=== PATIENT | female | born 1940 | race Caucasian/White ===

== ENCOUNTER 2023-11-17 15:01 | Emergency (ER) | payer MEDICARE, OTHER ==
[~2023-11-17] VITALS: Ht 162.6 cm; Wt 63.5 kg
[2023-11-17] MEDS ORDERED: Toprol Xl50 MG PO (17:46)
== END 2023-11-17 17:34 | disposition home or self-care (01) ==
LOC: ER 15:01
DX: Z76.0 Encounter for issue of repeat prescription (principal); Z79.899 Other long term (current) drug therapy; I48.91 Unspecified atrial fibrillation; I11.0 Hypertensive heart disease with heart failure; I50.9 Heart failure, unspecified; E11.42 Type 2 diabetes mellitus with diabetic polyneuropathy
CPT/HCPCS: 99282

== ENCOUNTER 2023-12-01 18:55 | Emergency (ER) | payer MEDICARE, OTHER ==
[~2023-12-01] VITALS: Ht 162.6 cm; Wt 70.3 kg
== END 2023-12-01 22:23 | disposition home or self-care (01) ==
LOC: ER 18:55
DX: I11.0 Hypertensive heart disease with heart failure (principal); I50.9 Heart failure, unspecified; I48.91 Unspecified atrial fibrillation; E11.42 Type 2 diabetes mellitus with diabetic polyneuropathy; F17.210 Nicotine dependence, cigarettes, uncomplicated

== ENCOUNTER 2024-01-31 14:44 | Emergency (ER) | payer MEDICARE ==
[~2024-01-31] VITALS: Ht 162.6 cm; Wt 68.0 kg
[~2024-01-31 14:44] MED LIST: ACET500 PO; CATAPRES0.3 MG PO; ELIQUIS5 M2 PO; FURO20 PO; JARDIANCE10 MG PO; LISI5 PO; Neurontin300 MG PO; QUET25 PO; Toprol Xl50 MG PO
[2024-01-31] MEDS ORDERED: Ondansetron HCl 2 MG / ML 2ML Vial IV ONE (15:00)
[2024-01-31 15:15] LABS: BASOPHILS ABSOLUTE AUTO 0.01 K/mm3 (0.00-0.23); BASOPHILS PERCENT AUTO 0 % (0-2); EOSINOPHILS ABSOLUTE AUTO 0.01 K/mm3 (0.00-0.68); EOSINOPHILS PERCENT AUTO 0 % (0-6); Hematocrit 43.5 % (33.0-51.0); Hemoglobin 14.8 g/dL (11.5-16.0); IMMATURE GRAN ABSOLUTE AUTO 0.03 K/mm3 (0.00-0.10); IMMATURE GRAN PERCENT AUTO 0 % (0-1); LYMPHOCYTES ABSOLUTE AUTO 1.72 K/mm3 (0.84-5.20); LYMPHOCYTES PERCENT AUTO 21 % (21-46); MONOCYTES ABSOLUTE AUTO 0.59 K/mm3 (0.16-1.47); MONOCYTES PERCENT AUTO 7 % (4-13); Mean Corpuscular HGB 32.1 pg (26.0-34.0); Mean Corpuscular Volume 94 fL (80-100); Mean Platelet Volume 9.6 fL (9.1-12.4); NEUTROPHILS ABSOLUTE AUTO 5.88 K/mm3 (1.96-9.15); NEUTROPHILS PERCENT AUTO 71 % (41-73); Platelet Count 163 K/mm3 (150-400); RDW Coefficient Variation 13.2 % (11.7-14.2); RDW Standard Deviation 45.6 fL (35.1-46.3); Red Blood Cell Count 4.61 M/mm3 (3.80-5.20); White Blood Cell Count 8.24 K/mm3 (4.00-11.30)
[2024-01-31 15:28] LABS: Source, Urine Straight Cath
[2024-01-31 15:33] LABS: Appearance, Urine Clear (Clear); Bilirubin, Urine Neg (Neg); Blood, Urine Neg (Neg); Glucose Qualitative, Urine 4+ (Neg); Ketones, Urine Neg (Neg); Leukocyte Esterase, Urine Neg (Neg); Nitrite, Urine Neg (Neg); Protein, Urine 1+ (Neg); Specific Gravity, Urine 1.015 (1.003-1.022); Urobilinogen, Urine NORM (Normal)
[2024-01-31 15:37] LABS: Albumin, Blood 3.4 g/dL (3.4-5.0); Albumin/Globulin Ratio 0.8 (0.8-1.8); Bilirubin, Total 0.6 mg/dL (0.1-1.0); Bun/Creatinine Ratio 29.5 (12.0-20.0); Calcium, Blood 8.8 mg/dL (8.5-10.1); Creatinine, Blood 1.12 mg/dL (0.40-1.00); Total Protein, Blood 7.4 g/dL (6.4-8.2)
[2024-01-31 15:49] LABS: Color, Urine Pale Yellow (P-Yellow)
[2024-01-31 16:02] LABS: Influenza A, PCR NEGATIVE (NEGATIVE); Influenza B, PCR NEGATIVE (NEGATIVE); Resp Syncytial Virus, PCR NEGATIVE (NEGATIVE); SARS-Cov-2 (COVID-19) PCR, MMC NEGATIVE (NEGATIVE)
[2024-01-31] MEDS ORDERED: NS 1,000 ML IV SCH (16:30)
[2024-01-31] MEDS ORDERED: Ondansetron HCl 2 MG / ML 2ML Vial ONE (17:05)
[2024-01-31] MEDS ORDERED: ONDA4ODT MM (19:36)
== END 2024-01-31 19:44 | disposition home or self-care (01) ==
LOC: ER 14:44
PROVIDERS: Emergency Medicine
DX: R11.0 Nausea (principal); R06.02 Shortness of breath; I48.91 Unspecified atrial fibrillation; I11.0 Hypertensive heart disease with heart failure; I50.9 Heart failure, unspecified; E11.9 Type 2 diabetes mellitus without complications; F17.210 Nicotine dependence, cigarettes, uncomplicated; Z11.52 Encounter for screening for COVID-19; Z79.01 Long term (current) use of anticoagulants; Z79.899 Other long term (current) drug therapy
CPT/HCPCS: 0241U; 51701; 71045; 71260; 80053; 83690; 85025; 93005; 93010; 96374-59; 99285-25; J2405; J7030; P9612; Q9967

== ENCOUNTER 2024-02-20 21:53 | Emergency (ER) | payer MEDICARE ==
[~2024-02-20] VITALS: Ht 162.6 cm; Wt 67.6 kg
[~2024-02-20 21:53] MED LIST changes: +ONDA4ODT MM
[2024-02-20 23:57] LABS: BASOPHILS ABSOLUTE AUTO 0.03 K/mm3 (0.00-0.23); BASOPHILS PERCENT AUTO 0 % (0-2); EOSINOPHILS ABSOLUTE AUTO 0.15 K/mm3 (0.00-0.68); EOSINOPHILS PERCENT AUTO 2 % (0-6); Hematocrit 46.1 % (33.0-51.0); IMMATURE GRAN ABSOLUTE AUTO 0.02 K/mm3 (0.00-0.10); IMMATURE GRAN PERCENT AUTO 0 % (0-1); LYMPHOCYTES ABSOLUTE AUTO 2.42 K/mm3 (0.84-5.20); LYMPHOCYTES PERCENT AUTO 34 % (21-46); MONOCYTES ABSOLUTE AUTO 0.53 K/mm3 (0.16-1.47); MONOCYTES PERCENT AUTO 7 % (4-13); Mean Corpuscular HGB 31.8 pg (26.0-34.0); Mean Corpuscular HGB Conc 32.5 g/dL (31.5-36.5); Mean Corpuscular Volume 98 fL (80-100); Mean Platelet Volume 9.2 fL (9.1-12.4); NEUTROPHILS ABSOLUTE AUTO 4.01 K/mm3 (1.96-9.15); NEUTROPHILS PERCENT AUTO 56 % (41-73); Platelet Count 128 K/mm3 (150-400); RDW Standard Deviation 46.5 fL (35.1-46.3); Red Blood Cell Count 4.72 M/mm3 (3.80-5.20); White Blood Cell Count 7.16 K/mm3 (4.00-11.30)
[2024-02-21 00:22] LABS: Albumin, Blood 3.1 g/dL (3.4-5.0); Albumin/Globulin Ratio 0.9 (0.8-1.8); Bilirubin, Total 0.5 mg/dL (0.1-1.0); Bun/Creatinine Ratio 20.7 (12.0-20.0); Calcium, Blood 8.8 mg/dL (8.5-10.1); Creatinine, Blood 1.21 mg/dL (0.40-1.00); Globulin, Blood 3.6 g/dL (2.2-4.0); Potassium, Blood 3.9 mmol/L (3.5-5.5); Total Protein, Blood 6.7 g/dL (6.4-8.2)
[2024-02-21] MEDS ORDERED: NS 1,000 ML IV SCH (00:50)
[2024-02-21 01:46] LABS: Source, Urine Clean Catch
[2024-02-21 01:49] LABS: Bilirubin, Urine Neg (Neg); Blood, Urine Neg (Neg); Glucose Qualitative, Urine 4+ (Neg); Ketones, Urine Neg (Neg); Leukocyte Esterase, Urine Neg (Neg); Nitrite, Urine Neg (Neg); Protein, Urine 1+ (Neg); Urobilinogen, Urine NORM (Normal)
[2024-02-21 01:54] LABS: Appearance, Urine Clear (Clear); Color, Urine Pale Yellow (P-Yellow)
[2024-02-21] MEDS ORDERED: QUET25 PO (02:30)
== END 2024-02-21 05:13 | disposition home or self-care (01) ==
LOC: ER 21:53
PROVIDERS: Physician Assistant
DX: F03.90 Unspecified dementia, unspecified severity, without behavioral disturbance, psychotic disturbance, mood disturbance, and anxiety (principal); Z20.822 Contact with and (suspected) exposure to COVID-19; I11.9 Hypertensive heart disease without heart failure; I50.9 Heart failure, unspecified; E11.42 Type 2 diabetes mellitus with diabetic polyneuropathy; I48.91 Unspecified atrial fibrillation; F17.210 Nicotine dependence, cigarettes, uncomplicated; Z79.899 Other long term (current) drug therapy
CPT/HCPCS: 51798; 71046; 80053; 85025; J7030

== ENCOUNTER 2024-03-15 16:18 | Emergency (ER) | payer MEDICARE ==
[~2024-03-15] VITALS: Ht 162.6 cm; Wt 68.0 kg
[2024-03-15 16:48] LABS: BASOPHILS ABSOLUTE AUTO 0.02 K/mm3 (0.00-0.23); BASOPHILS PERCENT AUTO 0 % (0-2); EOSINOPHILS ABSOLUTE AUTO 0.06 K/mm3 (0.00-0.68); EOSINOPHILS PERCENT AUTO 1 % (0-6); Hemoglobin 16.5 g/dL (11.5-16.0); IMMATURE GRAN ABSOLUTE AUTO 0.03 K/mm3 (0.00-0.10); IMMATURE GRAN PERCENT AUTO 0 % (0-1); LYMPHOCYTES ABSOLUTE AUTO 1.48 K/mm3 (0.84-5.20); LYMPHOCYTES PERCENT AUTO 21 % (21-46); MONOCYTES PERCENT AUTO 6 % (4-13); Mean Corpuscular HGB 32.2 pg (26.0-34.0); Mean Corpuscular HGB Conc 34.4 g/dL (31.5-36.5); Mean Corpuscular Volume 94 fL (80-100); Mean Platelet Volume 9.3 fL (9.1-12.4); NEUTROPHILS ABSOLUTE AUTO 5.01 K/mm3 (1.96-9.15); NEUTROPHILS PERCENT AUTO 72 % (41-73); Platelet Count 159 K/mm3 (150-400); RDW Coefficient Variation 13.1 % (11.7-14.2); RDW Standard Deviation 44.3 fL (35.1-46.3); Red Blood Cell Count 5.12 M/mm3 (3.80-5.20)
[2024-03-15 17:15] LABS: Albumin, Blood 3.5 g/dL (3.4-5.0); Albumin/Globulin Ratio 0.8 (0.8-1.8); Bilirubin, Total 0.6 mg/dL (0.1-1.0); Bun/Creatinine Ratio 30.6 (12.0-20.0); Calcium, Blood 9.5 mg/dL (8.5-10.1); Creatinine, Blood 1.11 mg/dL (0.40-1.00); Globulin, Blood 4.4 g/dL (2.2-4.0); Magnesium, Blood 2.2 mg/dL (1.6-2.4); Potassium, Blood 3.9 mmol/L (3.5-5.5); Total Protein, Blood 7.9 g/dL (6.4-8.2)
== END 2024-03-15 19:07 | disposition left against medical advice (07) ==
LOC: ER 16:18
PROVIDERS: Physician Assistant
DX: R53.81 Other malaise (principal); R11.0 Nausea; R19.7 Diarrhea, unspecified; R06.02 Shortness of breath; Z53.29 Procedure and treatment not carried out because of patient's decision for other reasons
CPT/HCPCS: 71046; 80053; 83735; 83880; 84484; 85025; 93005; 93010; 99282-25

== ENCOUNTER 2024-07-31 15:01 | Emergency (ER) | payer MEDICARE ==
[~2024-07-31] VITALS: Ht 162.6 cm; Wt 72.6 kg
[2024-07-31 16:30] LABS: BASOPHILS ABSOLUTE AUTO 0.02 K/mm3 (0.00-0.23); BASOPHILS PERCENT AUTO 0 % (0-2); EOSINOPHILS ABSOLUTE AUTO 0.04 K/mm3 (0.00-0.68); EOSINOPHILS PERCENT AUTO 0 % (0-6); Hemoglobin 15.3 g/dL (11.5-16.0); IMMATURE GRAN ABSOLUTE AUTO 0.05 K/mm3 (0.00-0.10); IMMATURE GRAN PERCENT AUTO 1 % (0-1); LYMPHOCYTES ABSOLUTE AUTO 1.43 K/mm3 (0.84-5.20); LYMPHOCYTES PERCENT AUTO 15 % (21-46); MONOCYTES ABSOLUTE AUTO 0.51 K/mm3 (0.16-1.47); MONOCYTES PERCENT AUTO 5 % (4-13); Mean Corpuscular HGB 33.2 pg (26.0-34.0); Mean Corpuscular HGB Conc 34.8 g/dL (31.5-36.5); Mean Corpuscular Volume 95 fL (80-100); Mean Platelet Volume 8.6 fL (9.1-12.4); NEUTROPHILS ABSOLUTE AUTO 7.36 K/mm3 (1.96-9.15); NEUTROPHILS PERCENT AUTO 78 % (41-73); Platelet Count 202 K/mm3 (150-400); RDW Coefficient Variation 13.1 % (11.7-14.2); RDW Standard Deviation 45.2 fL (35.1-46.3); Red Blood Cell Count 4.61 M/mm3 (3.80-5.20); White Blood Cell Count 9.41 K/mm3 (4.00-11.30)
[2024-07-31 17:05] LABS: Albumin, Blood 3.7 g/dL (3.4-5.0); Albumin/Globulin Ratio 0.9 (0.8-1.8); Calcium, Blood 9.8 mg/dL (8.5-10.1); Globulin, Blood 4.2 g/dL (2.2-4.0); Potassium, Blood 4.6 mmol/L (3.5-5.5); Total Protein, Blood 7.9 g/dL (6.4-8.2)
== END 2024-07-31 19:40 | disposition left against medical advice (07) ==
LOC: ER 15:01
PROVIDERS: Student in an Organized Health Care Education/Training Program
DX: R25.1 Tremor, unspecified (principal); Z79.01 Long term (current) use of anticoagulants; Z79.899 Other long term (current) drug therapy; Z53.21 Procedure and treatment not carried out due to patient leaving prior to being seen by health care provider
CPT/HCPCS: 80053; 83880; 84484; 85025; 93005; 93010; 99282-25

== ENCOUNTER 2024-08-15 12:51 | Emergency (ER) | payer OTHER, MEDICARE ==
[~2024-08-15] VITALS: Ht 162.6 cm; Wt 70.3 kg
[2024-08-15 13:34] LABS: CORONAVIRUS COVID-19 AG Negative (NEGATIVE); INFLUENZA A AG Negative (NEGATIVE); INFLUENZA B AG Negative (NEGATIVE)
[2024-08-15 14:40] LABS: BASOPHILS ABSOLUTE AUTO 0.02 K/mm3 (0.00-0.23); BASOPHILS PERCENT AUTO 0 % (0-2); EOSINOPHILS ABSOLUTE AUTO 0.14 K/mm3 (0.00-0.68); EOSINOPHILS PERCENT AUTO 3 % (0-6); Hematocrit 43.1 % (33.0-51.0); Hemoglobin 14.6 g/dL (11.5-16.0); IMMATURE GRAN ABSOLUTE AUTO 0.04 K/mm3 (0.00-0.10); IMMATURE GRAN PERCENT AUTO 1 % (0-1); LYMPHOCYTES ABSOLUTE AUTO 1.15 K/mm3 (0.84-5.20); LYMPHOCYTES PERCENT AUTO 21 % (21-46); MONOCYTES ABSOLUTE AUTO 0.55 K/mm3 (0.16-1.47); MONOCYTES PERCENT AUTO 10 % (4-13); Mean Corpuscular HGB 32.7 pg (26.0-34.0); Mean Corpuscular HGB Conc 33.9 g/dL (31.5-36.5); Mean Corpuscular Volume 96 fL (80-100); Mean Platelet Volume 9.6 fL (9.1-12.4); NEUTROPHILS ABSOLUTE AUTO 3.54 K/mm3 (1.96-9.15); NEUTROPHILS PERCENT AUTO 65 % (41-73); Platelet Count 142 K/mm3 (150-400); RDW Coefficient Variation 13.2 % (11.7-14.2); RDW Standard Deviation 47.1 fL (35.1-46.3); Red Blood Cell Count 4.47 M/mm3 (3.80-5.20); White Blood Cell Count 5.44 K/mm3 (4.00-11.30)
[2024-08-15 15:49] LABS: Albumin, Blood 3.5 g/dL (3.4-5.0); Albumin/Globulin Ratio 0.9 (0.8-1.8); Bilirubin, Total 0.5 mg/dL (0.1-1.0); Bun/Creatinine Ratio 27.7 (12.0-20.0); Calcium, Blood 9.2 mg/dL (8.5-10.1); Creatinine, Blood 1.12 mg/dL (0.40-1.00); Potassium, Blood 5.1 mmol/L (3.5-5.5); Total Protein, Blood 7.5 g/dL (6.4-8.2)
[2024-08-15] MEDS ORDERED: Albuterol 2.5 MG/3 ML VIAL INH SCH (16:00)
[2024-08-15] MEDS ORDERED: Ipratropium Bromide INH 0.02% 0.5 mg/2.5ML Vial INH SCH (16:00)
[2024-08-15] MEDS ORDERED: MethylPREDNISolone Sod Succ 125 MG Vial IV ONE (16:00)
[2024-08-15] MEDS ORDERED: Acetaminophen 500 MG Tab PO ONE (17:25)
[2024-08-15] MEDS ORDERED: Ibuprofen 600 MG Tab PO ONE (17:30)
[2024-08-15] MEDS ORDERED: Doxycycline Hyclate 100 MG TAB PO ONE (17:30)
[2024-08-15] MEDS ORDERED: DOXY100 PO (18:55)
== END 2024-08-15 19:14 | disposition home or self-care (01) ==
LOC: ER 12:51
PROVIDERS: Physician Assistant
DX: J20.9 Acute bronchitis, unspecified (principal); I48.91 Unspecified atrial fibrillation; I11.0 Hypertensive heart disease with heart failure; I50.9 Heart failure, unspecified; E11.42 Type 2 diabetes mellitus with diabetic polyneuropathy; J44.9 Chronic obstructive pulmonary disease, unspecified; F17.210 Nicotine dependence, cigarettes, uncomplicated; Z79.899 Other long term (current) drug therapy; Z79.01 Long term (current) use of anticoagulants
CPT/HCPCS: 71046; 80053; 83690; 84484; 85025; 85379; 87428-QW; 93005; 93010; 94644; 94645; 94664; 96374; 99285-25; A9270; J2919

== ENCOUNTER 2024-11-20 16:11 | Inpatient (IN) | payer OTHER ==
[~2024-11-20] VITALS: Ht 162.6 cm; Wt 87.1 kg
[~2024-11-20 16:11] MED LIST changes: +DOXY100 PO
[2024-11-20 17:21] LABS: BASOPHILS ABSOLUTE AUTO 0.03 K/mm3 (0.00-0.23); BASOPHILS PERCENT AUTO 1 % (0-2); EOSINOPHILS ABSOLUTE AUTO 0.17 K/mm3 (0.00-0.68); EOSINOPHILS PERCENT AUTO 3 % (0-6); Hematocrit 39.3 % (33.0-51.0); Hemoglobin 13.7 g/dL (11.5-16.0); IMMATURE GRAN ABSOLUTE AUTO 0.06 K/mm3 (0.00-0.10); IMMATURE GRAN PERCENT AUTO 1 % (0-1); LYMPHOCYTES ABSOLUTE AUTO 1.59 K/mm3 (0.84-5.20); LYMPHOCYTES PERCENT AUTO 24 % (21-46); MONOCYTES ABSOLUTE AUTO 0.46 K/mm3 (0.16-1.47); MONOCYTES PERCENT AUTO 7 % (4-13); Mean Corpuscular HGB 33.3 pg (26.0-34.0); Mean Corpuscular HGB Conc 34.9 g/dL (31.5-36.5); Mean Corpuscular Volume 96 fL (80-100); NEUTROPHILS ABSOLUTE AUTO 4.23 K/mm3 (1.96-9.15); NEUTROPHILS PERCENT AUTO 65 % (41-73); RDW Coefficient Variation 12.7 % (11.7-14.2); RDW Standard Deviation 44.1 fL (35.1-46.3); Red Blood Cell Count 4.11 M/mm3 (3.80-5.20); White Blood Cell Count 6.54 K/mm3 (4.00-11.30)
[2024-11-20 17:35] LABS: Albumin, Blood 3.2 g/dL (3.4-5.0); Albumin/Globulin Ratio 0.9 (0.8-1.8); Bilirubin, Total 0.6 mg/dL (0.1-1.0); Bun/Creatinine Ratio 25.7 (12.0-20.0); Calcium, Blood 8.9 mg/dL (8.5-10.1); Creatinine, Blood 1.09 mg/dL (0.40-1.00); Globulin, Blood 3.6 g/dL (2.2-4.0); Potassium, Blood 4.7 mmol/L (3.5-5.5); Total Protein, Blood 6.8 g/dL (6.4-8.2)
[2024-11-20] MEDS ORDERED: HYDROmorphone HCl/Pf 1MG SYR IV ONE (17:40)
[2024-11-20] MEDS ORDERED: Ondansetron HCl 2 MG / ML 2ML Vial IV ONE (17:40)
[2024-11-20] MEDS ORDERED: MAGN84 PO (17:50)
[2024-11-20] MEDS ORDERED: POTCHL20ER PO (17:51)
[2024-11-20] MEDS ORDERED: ABILIFY MYCITE5 M2 PO (17:52)
[2024-11-20 17:56] LABS: Mean Platelet Volume 9.3 fL (9.1-12.4); Platelet Count 140 K/mm3 (150-400)
[2024-11-20] MEDS ORDERED: Ketorolac Tromethamine 30mg Vial IV ONE (18:55)
[2024-11-20] MEDS ORDERED: NS 1,000 ML IV SCH ×2 (19:00→22:55)
[2024-11-20] MEDS ORDERED: LORazepam 2 MG/ML 1ML Injection IV ONE ×2 (19:05→19:25)
[2024-11-20] MEDS ORDERED: Metoprolol Tartrate 1 MG/ML 5 ML VIAL IV ONE ×2 (20:05→20:55)
[2024-11-20] MEDS ORDERED: Metoprolol Tartrate 5 ML IV ONE (20:51)
[2024-11-20] MEDS ORDERED: LORazepam 2 MG/ML 1ML Injection IV PRN (21:20)
[2024-11-20] MEDS ORDERED: Metoprolol Tartrate 1 MG/ML 5 ML VIAL IV PRN (21:20)
[2024-11-20] MEDS ORDERED: FentaNYL Citrate 50 MCG/ML 2 ML Injection IV PRN (21:20)
[2024-11-20] MEDS ORDERED: HYDROcodone 5-APAP 325 TAB PO PRN (21:25)
[2024-11-20] MEDS ORDERED: Nicotine 21 MG PATCH TOP PRN (21:30)
[2024-11-20] MEDS ORDERED: Albuterol 2.5 MG/3 ML VIAL INH PRN (21:35)
[2024-11-20] MEDS ORDERED: Ondansetron HCl 2 MG / ML 2ML Vial IV PRN (22:55)
[2024-11-20] MEDS ORDERED: Ipratropium/Albuterol SulF 2.5-0.5MG/3 ML Amp INH SCH (23:20)
[2024-11-21] VITALS (23 sets, daily range): BP systolic 104–143; BP diastolic 72–109
[2024-11-21 00:28] LABS: Source, Urine Foley catheter
[2024-11-21 00:33] LABS: Bilirubin, Urine Neg (Neg); Blood, Urine Neg (Neg); Glucose Qualitative, Urine 4+ (Neg); Ketones, Urine Neg (Neg); Leukocyte Esterase, Urine Neg (Neg); Nitrite, Urine Neg (Neg); Protein, Urine 2+ (Neg); Specific Gravity, Urine 1.015 (1.003-1.022); Urobilinogen, Urine NORM (Normal)
[2024-11-21] MEDS ORDERED: LORAZEPAM0.5 MG PO (00:38)
[2024-11-21] MEDS ORDERED: ALBU2.5V5 INH (00:39)
[2024-11-21] MEDS ORDERED: FUROSEMIDE20 MG PO (00:40)
[2024-11-21] MEDS ORDERED: SPIRIVA RESPIMAT4 G3 INH (00:40)
[2024-11-21] MEDS ORDERED: DIGOX125 MC1 PO (00:44)
[2024-11-21] MEDS ORDERED: PAXIL40 M1 PO (00:46)
[2024-11-21] MEDS ORDERED: NEURONTIN300 MG PO (00:47)
[2024-11-21 00:48] LABS: Appearance, Urine Clear (Clear); Bacteria Rare /hpf; Color, Urine Yellow (P-Yellow); Red Blood Cells, Urine Not Seen /hpf (0-2); Squamous Epithelial Cells Rare /hpf (Few); White Blood Cells, Urine 0-2 /hpf (0-5)
[2024-11-21] MEDS ORDERED: dilTIAZem HCL 125 MG in Dextrose 5% 100 ML IV SCH (01:30)
[2024-11-21] MEDS ORDERED: Insulin Regular 100 UNIT/ML 10ML Vial SC ONE (03:20)
[2024-11-21 04:34] LABS: Hemoglobin 14.3 g/dL (11.5-16.0); Mean Corpuscular HGB Conc 33.3 g/dL (31.5-36.5); Mean Corpuscular Volume 99 fL (80-100); Mean Platelet Volume 9.2 fL (9.1-12.4); Platelet Count 179 K/mm3 (150-400); RDW Coefficient Variation 12.9 % (11.7-14.2); RDW Standard Deviation 46.8 fL (35.1-46.3); Red Blood Cell Count 4.33 M/mm3 (3.80-5.20); White Blood Cell Count 13.19 K/mm3 (4.00-11.30)
[2024-11-21 05:11] LABS: Alanine Aminotransfer (ALT/SGP 20 U/L (12-78); Albumin, Blood 3.4 g/dL (3.4-5.0); Albumin/Globulin Ratio 0.8 (0.8-1.8); Alk Phos 74 U/L (50-136); Anion Gap 10 mmol/L (3-11); Aspartate Aminotrans (AST/SGOT 18 U/L (12-37); Bilirubin, Total 0.7 mg/dL (0.1-1.0); Blood Urea Nitrogen 34 mg/dL (8-24); CO2, Blood 26 mmol/L (21-32); Calcium, Blood 9.1 mg/dL (8.5-10.1); Chloride, Blood 102 mmol/L (98-108); Creatinine, Blood 1.62 mg/dL (0.40-1.00); Digoxin (Lanoxin) 0.56 ug/mL (0.80-2.00); Globulin, Blood 4.1 g/dL (2.2-4.0); Glomerular Filtration Rate 31 (60-); Glucose, Blood 331 mg/dL (70-99); Magnesium, Blood 2.4 mg/dL (1.6-2.4); Potassium, Blood 5.8 mmol/L (3.5-5.5); Sodium, Blood 132 mmol/L (136-145); Total Protein, Blood 7.5 g/dL (6.4-8.2)
[2024-11-21] MEDS ORDERED: Insulin Glargine-Yfgn 100 Unit/mL 3 ML SYR SC SCH (06:00)
[2024-11-21] MEDS ORDERED: Insulin Human Lispro 100 Units/ML 3ML Syringe SC SCH (06:00)
--- NOTE | 2024-11-21 06:06 | NUR ---
SHIFT SUMMURY: A/O x 3 WITH PERIODS OF CONFUSION. HR IN THE 130'S INITIALLY/ AFIB RVR. CARDIZEM DRIP INFUSING PER EMAR AND HR IS CURRENLY IN THE 80'S. CONTINUOS SODIUM CLORIDE INFUSING VIA PUMP. MEDICATED FOR LEFT HIP FRACTURE PAIN PER EMAR. INCONTINENT OF URINE. GARCIA CATHERTER IN PLACE AND DRAINING YELLOW URINE. BED IS AT THE LOWEST POSITION AND CALL LIGHT IS WITHIN REACH.
[2024-11-21] MEDS ORDERED: Digoxin 0.25 MG/ML 2ML Amp IV ONE (07:00)
[2024-11-21 08:54] LABS: Bun/Creatinine Ratio 21.3 (12.0-20.0); Creatinine, Blood 1.69 mg/dL (0.40-1.00); Potassium, Blood 5.4 mmol/L (3.5-5.5)
[2024-11-21] MEDS ORDERED: PARoxetine HCl 20 MG Tab PO SCH (09:00)
[2024-11-21] MEDS ORDERED: Docusate Sodium 100 MG Cap PO SCH (09:00)
[2024-11-21] MEDS ORDERED: Metoprolol Succinate 50 MG TABCR PO SCH (09:00)
[2024-11-21] MEDS ORDERED: Insulin Human Lispro 100 Units/ML 3ML Syringe SC ONE (13:15)
[2024-11-21] MEDS ORDERED: Tiotropium Bromide 2.5 MCG/ACT MIST INHAL (10 ACT/4 GM) INH SCH (15:30)
[2024-11-21] MEDS ORDERED: NS 1,000 ML IV SCH ×2 (15:35→17:10)
[2024-11-21] MEDS ORDERED: Metoprolol Succinate 50 MG TABCR PO ONE (15:45)
[2024-11-21 15:46] LABS: Bun/Creatinine Ratio 21.9 (12.0-20.0); Calcium, Blood 8.9 mg/dL (8.5-10.1); Creatinine, Blood 1.69 mg/dL (0.40-1.00); Potassium, Blood 5.2 mmol/L (3.5-5.5)
[2024-11-21] MEDS ORDERED: Heparin Sodium 5000 Units/ML 1ML MDV SC SCH (16:00)
--- NOTE | 2024-11-21 18:11 | NUR ---
SHIFT SUMMARY PATIENT A0X2-3 INTERMITTENT CONFUSION. SHE IS ABLE TO MAKE HER NEEDS KNOWN. THIS MORNING SHE REFUSED PAIN MEDICATION UNTIL ALMOST NOON. SHE IS REPOSITIONED EVERY 2 HOURS. SHE REMAINED ON DILT GTT THE WHOLE SHIFT. SHE STATES SHES NEEDS TO PEE BUT IS INFORMED SHE HAS A GARCIA AND TO GO AHEAD AND VOID. HER URINE OUTPUT WAS LOW AND BLADDER SCAN DIDNT SHOW MUCH URINE SO THE HOSPITALIST WAS INFORMED AND HE ORDERED MORE FLUIDS. SX CAME AND SPOKE WITH THE PATIENT AND FAMILY AT BEDSIDE AND THEY ALL WANT TO GO FORWARD WITH SX TOMORROW.
[2024-11-21] MEDS ORDERED: QUEtiapine Fumarate 25 MG Tab PO SCH (21:00)
[2024-11-21] MEDS ORDERED: ARIPiprazole 5 MG Tab PO SCH ×2 (21:00)
[2024-11-22] VITALS (25 sets, daily range): BP systolic 81–164; BP diastolic 52–139
[2024-11-22] MEDS ORDERED: Morphine Sulfate 4 MG/1 ML Injection IV PRN (02:05)
--- NOTE | 2024-11-22 04:44 | NUR ---
UPDATE PT HAS GARCIA IN PLACE, DRAINING TO GRAVITY. PT NPO SINCE M.N FOR PROCEDURE THIS AM BUT WAS RECIEVING FLUIDS AT 125. PT ONLY HAD 300 OUT IN GARCIA, BLADDER SCAN COMPLETED WITH ONLY 10MLS. CALL PLACED TO PROVIDER AND UPDATED HIM ON THIS. ORDER PLACED TO INCREASE IV FLUIDS TO 175. PT ALSO COUGHING SINCE TAKING PO MEDS AND DRINKING WATER, PROVIDER NOTIFIED. ORDER FOR ST PLACED.
[2024-11-22 06:09] LABS: BASOPHILS ABSOLUTE AUTO 0.03 K/mm3 (0.00-0.23); BASOPHILS PERCENT AUTO 0 % (0-2); EOSINOPHILS ABSOLUTE AUTO 0.03 K/mm3 (0.00-0.68); EOSINOPHILS PERCENT AUTO 0 % (0-6); Hematocrit 39.9 % (33.0-51.0); Hemoglobin 13.2 g/dL (11.5-16.0); IMMATURE GRAN ABSOLUTE AUTO 0.12 K/mm3 (0.00-0.10); IMMATURE GRAN PERCENT AUTO 1 % (0-1); LYMPHOCYTES PERCENT AUTO 11 % (21-46); MONOCYTES ABSOLUTE AUTO 1.17 K/mm3 (0.16-1.47); MONOCYTES PERCENT AUTO 7 % (4-13); Mean Corpuscular HGB 33.3 pg (26.0-34.0); Mean Corpuscular HGB Conc 33.1 g/dL (31.5-36.5); Mean Corpuscular Volume 101 fL (80-100); Mean Platelet Volume 9.5 fL (9.1-12.4); NEUTROPHILS ABSOLUTE AUTO 12.65 K/mm3 (1.96-9.15); NEUTROPHILS PERCENT AUTO 80 % (41-73); Platelet Count 177 K/mm3 (150-400); RDW Coefficient Variation 13.1 % (11.7-14.2); Red Blood Cell Count 3.96 M/mm3 (3.80-5.20)
--- NOTE | 2024-11-22 06:19 | NUR ---
SHIFT SUMMARY PT ALERT, ORIENTED TO SELF AND PLACE ONLY. UNABLE TO STATE YEAR OR WHY SHE IS AT THE HOSPITAL. PT YELLS OUT, SHE DOES NOT USE THE CALL LIGHT. SHE IS CONFUSED T/O SHIFT YELLING OUT RANDOM WORDS AND SAYING "OW OW." HR IN THE 110'S-130'S, DILT GTT AT 10. SHE SHAKES HER HEAD NO WHEN ASKED ABOUT HAVING CP/PRESSURE, NUMB/TINGLING. SBP ELEVATED AT TIMES. LAST SBP IN 120'S. PT ON 3L VIA NC. PER PTS DAUGHTER SHE IS ON O2 AT HOME PRN. PT ON BEDREST FOR HIP FX. PT YELLING OUT "OW" BUT UNABLE TO GIVE NUMERICAL SCALE, FLACC SCALE USED, SEE EMAR FOR DETAILS. MEDICATING PER EMAR. PT HAS GARCIA IN PLACE, DRAINING TO GRAVITY. PT HAD MINIMAL OUTPUT T/O NIGHT, PROVIDER NOTIFIED, FLUIDS INCREASED. PTS URINE HAS CLEARED UP SINCE START OF SHIFT, ORIGINALLY TEA COLORED AND NOW A DARK YELLOW. PT COUGHING SINCE DRINIKING WATER AND TAKING MEDS, ST EVAL PLACED. PT NPO SINCE MIDNIGHT FOR PROCEDURE. WILL MONITOR PT AND REPORT TO ONCOMING RN.
[2024-11-22 06:48] LABS: Anion Gap 12 mmol/L (3-11); Blood Urea Nitrogen 38 mg/dL (8-24); Bun/Creatinine Ratio 23.6 (12.0-20.0); CO2, Blood 21 mmol/L (21-32); Calcium, Blood 8.6 mg/dL (8.5-10.1); Chloride, Blood 107 mmol/L (98-108); Creatinine, Blood 1.61 mg/dL (0.40-1.00); Digoxin (Lanoxin) 0.79 ug/mL (0.80-2.00); Glomerular Filtration Rate 32 (60-); Glucose, Blood 214 mg/dL (70-99); Potassium, Blood 4.7 mmol/L (3.5-5.5); Sodium, Blood 135 mmol/L (136-145)
[2024-11-22] MEDS ORDERED: Digoxin 0.25 MG/ML 2ML Amp IV ONE (07:00)
[2024-11-22] MEDS ORDERED: Metoprolol Succinate 50 MG TABCR PO SCH (07:00)
[2024-11-22] MEDS ORDERED: Metoprolol Tartrate 1 MG/ML 5 ML VIAL IV ONE (07:15)
[2024-11-22] MEDS ORDERED: propofoL 0 ML IV ONE (08:32)
[2024-11-22] MEDS ORDERED: Sugammadex Sodium 200 MG/2ML SDV (100 MG/ML) ONE ×2 (08:32→15:22)
[2024-11-22] MEDS ORDERED: Ondansetron HCl 2 MG / ML 2ML Vial ONE ×2 (08:32→15:19)
[2024-11-22] MEDS ORDERED: Dexamethasone Sod Phos 10 MG/ML 1ML VIAL ONE (08:32)
[2024-11-22] MEDS ORDERED: FentaNYL Citrate 50 MCG/ML 2 ML Injection ONE ×2 (08:32→13:22)
[2024-11-22] MEDS ORDERED: Rocuronium Bromide 10 MG/ML 5ML Injection IV ONE ×2 (08:32→13:23)
[2024-11-22] MEDS ORDERED: Midazolam HCl 1MG / ML 2ML Vial ONE (08:32)
[2024-11-22] MEDS ORDERED: Lidocaine 2%-Epineph 1:200000 20 ML SDV ONE (08:35)
[2024-11-22] MEDS ORDERED: Bupivacaine 0.5% HCl 5 MG/ML 30MLVIAL ONE (08:36)
[2024-11-22] MEDS ORDERED: Ketorolac Tromethamine 30mg Vial ONE (08:36)
[2024-11-22] MEDS ORDERED: Tranexamic Acid 100 ML IV SCH (11:15)
[2024-11-22] MEDS ORDERED: CeFAZolin Sodium 2,000 MG in NS 100 ML IV SCH ×2 (11:15→22:00)
[2024-11-22] MEDS ORDERED: Lactated Ringer's 1,000 ML IV SCH (13:05)
[2024-11-22] MEDS ORDERED: CeFAZolin Sodium 2,000 MG VIAL ONE (13:18)
[2024-11-22] MEDS ORDERED: propofoL 20 ML IV ONE (13:22)
--- NOTE | 2024-11-22 13:27 | NUR ---
PT TO SDS VIA BED FROM PCU. REYZEM GTT RUNING VIA POWER GLIDE. CONFIRMED NPO status and agrees with scheduled surgery. Pre-Op teaching done. Pt/FAMILY VERBALIZED UNDERSTANDING. History, Chart, Medications and Allergies reviewed before start of procedure. GARCIA TO GRAVITY. PT UNABLE TO ANSWER QUESTIONS, FAMILY AT BEDSIDE.
[2024-11-22] MEDS ORDERED: Phenylephrine HCl 100 MCG/ML-NS 10MLSYR (1MG/10ML) ONE ×2 (13:47→15:22)
[2024-11-22] MEDS ORDERED: Metoprolol Tartrate 5 ML IV ONE (14:01)
[2024-11-22] MEDS ORDERED: FentaNYL Citrate 50 MCG/ML 2 ML Injection IV PRN ×4 (14:55→22:05)
[2024-11-22] MEDS ORDERED: Albuterol HFA200 ACT/6.7 GM INH ONE (14:58)
[2024-11-22] MEDS ORDERED: Ondansetron HCl 2 MG / ML 2ML Vial IV PRN (15:00)
[2024-11-22] MEDS ORDERED: Albuterol 2.5 MG/3 ML VIAL INH PRN (15:00)
[2024-11-22] MEDS ORDERED: Bupivacaine 0.5% W/EPI 1:200000 SDV 30 ML Vial ONE (15:17)
[2024-11-22] MEDS ORDERED: Bupivacaine 0.5% HCl 5 MG/ML 30MLVIAL INJ ONE (15:20)
--- NOTE | 2024-11-22 19:18 | NUR ---
SHIFT SUMMARY PATIENT AOX1 THIS MORNING ABLE TO STATE SHE IS IN PAIN. SHE REMAINS ON THE DILT GTT AND RECEIVING IV FLUIDS. BEFORE SX SHE WAS ALTERNATING HER PAIN MEDS OF MORPHINE AND FENTANYL. SHE WAS REPOSTIONED Q2H. SHE WAS KEPT NPO AND AWAITING A SPEECH EVAL. SHE CAME BACK FROM SX SLEEPING EASILY AWOKEN VITALS STABLE AND ON 8L ON THE OXYMASK. REPORT WAS GIVEN TO THE NIGHT NURSE ALL QUESTIONS ANSWERED.
--- NOTE | 2024-11-22 22:00 | NUR ---
CALL PLACED TO HOSPITILIST TO INCREASE PT'S PAIN MEDICATION. ADVISED THAT PT RESPONDS WHEN ASKED IF IN PAIN W/ CONSTANT GROANING THROUGHOUT THE SHIFT. HOSPITILIST TO CHANGE EMAR FOR PAIN MED INCREASE. WAS ADVISED TO CONT DILT DRIP PER EMAR ORDER.
[2024-11-23] VITALS (33 sets, daily range): BP systolic 93–192; BP diastolic 58–163
[2024-11-23 04:23] LABS: BASOPHILS ABSOLUTE AUTO 0.03 K/mm3 (0.00-0.23); BASOPHILS PERCENT AUTO 0 % (0-2); EOSINOPHILS PERCENT AUTO 0 % (0-6); Hematocrit 40.3 % (33.0-51.0); IMMATURE GRAN ABSOLUTE AUTO 0.21 K/mm3 (0.00-0.10); IMMATURE GRAN PERCENT AUTO 1 % (0-1); LYMPHOCYTES PERCENT AUTO 6 % (21-46); MONOCYTES ABSOLUTE AUTO 1.43 K/mm3 (0.16-1.47); MONOCYTES PERCENT AUTO 7 % (4-13); Mean Corpuscular HGB 33.5 pg (26.0-34.0); Mean Corpuscular HGB Conc 32.3 g/dL (31.5-36.5); Mean Corpuscular Volume 104 fL (80-100); Mean Platelet Volume 9.5 fL (9.1-12.4); NEUTROPHILS ABSOLUTE AUTO 17.71 K/mm3 (1.96-9.15); NEUTROPHILS PERCENT AUTO 86 % (41-73); NRBC ABSOLUTE 0.03 K/mm3 (0.00-0.02); NRBC Auto 0.1 /100 WBC (0.0-0.2); Platelet Count 205 K/mm3 (150-400); RDW Coefficient Variation 13.5 % (11.7-14.2); RDW Standard Deviation 51.3 fL (35.1-46.3); Red Blood Cell Count 3.88 M/mm3 (3.80-5.20); White Blood Cell Count 20.58 K/mm3 (4.00-11.30)
[2024-11-23 04:47] LABS: Bun/Creatinine Ratio 25.7 (12.0-20.0); Calcium, Blood 8.2 mg/dL (8.5-10.1); Creatinine, Blood 1.75 mg/dL (0.40-1.00); Potassium, Blood 4.9 mmol/L (3.5-5.5)
[2024-11-23] MEDS ORDERED: Metoprolol Tartrate 1 MG/ML 5 ML VIAL IV PRN (05:00)
[2024-11-23] MEDS ORDERED: Metoprolol Tartrate 1 MG/ML 5 ML VIAL IV ONE (05:00)
--- NOTE | 2024-11-23 05:39 | NUR ---
SHIFT SUMMARY: PT IS AOX1, PT NOT ABLE TO ORIENT TO TIME AND PLACE. ON TELE AFIB HRS 120S. INCREASED HR W/ PAIN. PT NEEDED ON THE CLOCK PAIN MEDICATION PER EMAR/ PT EXPRESSES HERSELF BY LOUD GROANING AND MOANING THROUGHOUT THE NIGHT, UNABLE TO UTILIZE CALL LIGHT D/T CONFUSION. FREQUENTLY TAKING OFF O2 MASK THROUGHOUT THE NIGHT W/ DECREASED O2 SATURATIONS. ADVISING PT CONTINOUSLY TO KEEP MASK ON BUT UNABLE TO UNDERSTAND COMMANDS. HOSPITALIST CONTACTED REGARDING DECREASED U/O IN CATHETER & HR CONTROL, CATHETER WAS IRRIGATED W/ NO CLOTS, FLUSHES APPROPRIATELY. PT STILL HAS HIGH HRS 140S-150S AT TIMES. ADVISED TO KEEP DILT DRIP AT CURRENT RATE 5MLS/HR AND TO INCREASE LOPRESSOR PER NEW EMAR ORDER. HOSPITALIST ADVISED TO KEEP NS 175ML HR AND MORNING LABS ADDED. CALL LIGHT WITHIN REACH, BED AT LOWEST POSITION W/ BED ALARM ACTIVATED.
--- NOTE | 2024-11-23 06:13 | NUR ---
REVIEWED AND AGREED WITH ALL DIETARY AID DOCUMENTATION
--- NOTE | 2024-11-23 09:37 | NUR ---
CARE ASSUMPTION PT CONFUSED, UNABLE TO MAKE NEEDS KNOWN, DOES NOT FOLLOW COMMANDS. SP02>90% ON 8L VENTI MASK, LUNGS W/ RHONCHI. TELEMETRY SHOWS AFIB/POSSIBLE AFLUTTER, HR 130'S-170'S. HTN NOTED, SEE VITALS. BP CUFF SWITCHED TO LEG D/T PT RAISING ARM UP AND DOWN. CARDIZEM INFUSING AT 10, INCREASED TO 15. PRN LOPRESSOR GIVEN X1. NS INFUSING PER EMAR, MD MACKEY CONTACTED, ORDERED FOR PAUSE FLUIDS. BNP ORDERED. GARCIA CATHETER WITH YELLOW URINE TO GRAVITY, HYPOACTIVE BOWEL SOUNDS. PT FACE SCALE 10/10 PAIN, MEDICATED PER EMAR. FAMILY, TRUNG IN ROOM CURRENTLY. CALL LIGHT IN REACH. FAMILY NOTIFIED TO PUSH IF NEED ASSISTANCE.
[2024-11-23] MEDS ORDERED: Piperacillin/Tazobactam Sod 4.5 GM in NS 100 ML IV SCH (10:00)
[2024-11-23] MEDS ORDERED: Digoxin 0.25 MG/ML 2ML Amp IV SCH (10:00)
[2024-11-23] MEDS ORDERED: DIGOXIN IV SCH (10:01)
[2024-11-23] MEDS ORDERED: NS IV SCH (10:01)
[2024-11-23] MEDS ORDERED: Morphine Sulfate 4 MG/1 ML Injection IV PRN (10:05)
[2024-11-23 10:39] LABS: Digoxin (Lanoxin) 1.07 ug/mL (0.80-2.00)
[2024-11-23 11:12] LABS: Albumin, Blood 2.8 g/dL (3.4-5.0); Albumin/Globulin Ratio 0.7 (0.8-1.8); Bilirubin, Direct 0.2 mg/dL (0.0-0.3); Bilirubin, Indirect 0.3 mg/dL (0.1-0.7); Bilirubin, Total 0.5 mg/dL (0.1-1.0); Globulin, Blood 3.8 g/dL (2.2-4.0); Total Protein, Blood 6.6 g/dL (6.4-8.2)
[2024-11-23 11:17] LABS: Anti-Xa UFH, PHA Monitoring 0.13 IU/mL
[2024-11-23] MEDS ORDERED: Labetalol HCL 5 MG/ML 4ML Injection (Single Dose) IV ONE (11:20)
[2024-11-23 11:33] LABS: International Normalized Ratio 1.08; Prothrombin Time Results 11.5 Sec (9.7-11.5)
[2024-11-23] MEDS ORDERED: Dose Adjust by Pharmacy XX STA ×2 (11:52→20:59)
[2024-11-23] MEDS ORDERED: Heparin Sodium,Porcine/0.5 NS 500 ML IV SCH (11:55)
[2024-11-23] MEDS ORDERED: Heparin Sodium 5000 Units/ML 1ML MDV IV ONE (11:55)
[2024-11-23] MEDS ORDERED: Furosemide 10 MG / ML 2ML Vial IV SCH (12:00)
--- NOTE | 2024-11-23 12:02 | NUR ---
"Spiritual care | Nurse/family request Pt. is awake but it is not visibly responsive to this instrument assembler's presence at first. Daughter is at bedside and displays tearful emotion. Faciliiate a life review. Daughter speaks of Pts. stephanie history, but admits it has not been a recent practice. Daughter verbalizes that she has benefitted reciprocally from the Pt. who brought her into her home. Prayed for the Pt. with minimal effect, but when this instrument assembler prayed a trinitarian benediction the Pt. did visibly relax. Pts. daughter verbalized a desire to have spiritual care present should the Pt. begin to actively transition. Notified attending nurse. Daughter verbalized gratitude for the spiritual care visit."
--- NOTE | 2024-11-23 12:40 | NUR ---
UPDATE PT DOWN TO CT, SEE RESULTS. HEP GTT STARTED PER EMAR. ONE TIME DOSE 10 OF LABETALOL GIVEN PER MD MACKEY FOR HTN, SEE VITALS. ULTRA SOUND IN ROOM FOR VENOUS DUPLEX, SEE RESULTS. ABX STARTED PER EMAR. PT CONTINUES TO MOAN IN PAIN, MEDICATING PER EMAR. MORPHINE FREQUENCY INCREASED FROM Q4H TO Q2H. L HAND APPEARS CLENCHED IN A FIST CONTINUOUSLY, DIFFICULT TO HAVE PT RELEASE. BILAT FEET APPEAR TO HAVE TOES CURLED IF CRAMPING, BLE MOTTLING NOTED, MD AWARE. REPOSITIONING Q2H. DAUGHTER IN ROOM. PALLIATIVE AND SPIRITUAL CARE BOTH IN ROOM TO SPEAK TO FAMILY.
[2024-11-23] MEDS ORDERED: Morphine Sulfate 10 MG/ML 1MLSYR IV PRN (13:25)
[2024-11-23] MEDS ORDERED: Acetaminophen 650 MG Supp PR PRN (13:25)
--- NOTE | 2024-11-23 13:27 | NUR ---
PALLIATIVE CARE VISIT: PRIMARY RN REQUESTED VISIT BECAUSE FAMILY WERE REQUESTING POC TO ADDRESS PT PAIN. MET WITH DAUGHTER AND PT IN THE ROOM. PT IS LAYING DOWN FLAT, ON O2 VIA OXIMASK, SHE IS CONSTANTLY MOANING LOUDLY. PRIMARY RN JUST MEDICATED WITH PAIN MEDICATIONS. LEFT HAND IS CLENCHED, SLIGHT MOTTLING NOTED TO LOWER LEFT FOOT. ATTEMPTED TO ELICIT VERBAL COMMUNICATION FROM PT, SHE WOULD STOP MAOANING BRIEFLY BUT WOULD NOT RESPOND TO QUESTIONS. EDUCATED DAUGHTER ABOUT COMFORT MEASURES PROVIDED IN HOSPITAL. ADVISED ALL IV ANTIBIOTICS WOULD STOP. FOCUS WOULD BE ON COMFORT, PAIN MANAGEMENT. DAUGHTER STATED SHE WANTS TO FOCUS ON COMFORT AT THIS TIME BUT SHE WOULD HAVE TO WAIT FOR HER BROTHER TO MAKE FINAL DECISION. REQUESTED TO CALL PC WHEN BROTHER ARRIVES TO DISCUSS FURTHER. CALLED DR. SHIPLEY TO ADDRESS PAIN. DR. SHIPLEY AGREEABLE TO INCREASING MORPHINE TO 2-4 MG Q2 PRN, ADDING TYLENOL SUPPOSITORY AND LIDOCAINE PATCH. ORDERS PLACED PER HIS REQUEST. LEFT MESSAGE TO PRIMARY RN WILTON.
--- NOTE | 2024-11-23 17:12 | NUR ---
SHIFT SUMMARY: PT IS CONFUSED AT BASELINE, UNABLE TO FOLLOW COMMANDS, AFIB RVR, HFpEF 49%, HRR 90'S-160'S, CURRENTLY 110, CARDIZEM GTT AND HEPARIN GTT PER EMAR BNP 1436, D-DIMER 3.66. RHONCHI/COARSE LUNG SOUNDS IN ALL [place], 8L O2 VIA VM, SAT >90%, HX COPD, CHEST/ ABDOMINAL CT INDICATED POSSIBLE ASPIRATION PNEUMONIA PER REPORT, ZOSIN INFUSED PER EMAR. NPO, UNABLE TO SAFELY SWALLOW, GARCIA CATH, GFR 29, HYPOACTIVE BOWEL TONES, NO BM THIS SHIFT. L LEG FEMUR FX, AQUACEL IN PLACE ON L HIP/FEMUR, POD1, SCDS IN PLACE, Q2 REPOSITIONING, PG THAT DRAWS TO TAYE, 18G IV TO LFA. DAUGHTER EXPRESSED DESIRE FOR SPIRITUAL GUIDANCE AND VISIT AND INTEREST IN PALLIATIVE CARE SERVICES, RALF AND PALLIATIVE CARE VISITED ROOM WITH DAUGHTER AT BEDSIDE.
--- NOTE | 2024-11-23 21:42 | NUR ---
CALL PLACED TO HOSPITALIST TO ADD ON GENTLE HYDRATION D/T PT NOT RECIEVING FLUIDS THROUGHOUT DAY SHIFT, REVIEWED LABS. NOTIFIED OF LOW URINE OUTPUT, NO INTAKE OF FOOD/FLUID D/T ASPIRATION RISK PROVIDR DECLINED TO ADD FLUIDS AT THIS TIME.
[2024-11-24] VITALS (15 sets, daily range): BP systolic 121–172; BP diastolic 59–107
--- NOTE | 2024-11-24 01:28 | NUR ---
CALL PLACED TO RESIDENT DR DE LA CRUZ TO INQUIRE ABOUT ADDITIONAL PAIN MEDICATIONS. ADVISED PROVIDER PT HAS INCREASE AGITATION, GETTING MEDICATED PER EMAR W/ FENTANYL AND MORPHINE W/ NO IMPROVEMENT, INQUIRED ABOUT HAVING PROVIDER TO COME TO UNIT TO ASSESS PT. DR DE LA CRUZ STATED WILL LOOK INTO PTS CHART FOR ADJUSTMENTS AND POSSIBLY COME TO ASSESS.
[2024-11-24] MEDS ORDERED: FentaNYL Citrate 50 MCG/ML 2 ML Injection IV PRN (02:15)
[2024-11-24 03:19] LABS: Hematocrit 34.7 % (33.0-51.0); Hemoglobin 11.1 g/dL (11.5-16.0); Mean Platelet Volume 9.8 fL (9.1-12.4); Platelet Count 141 K/mm3 (150-400)
[2024-11-24] MEDS ORDERED: Clarify Drug Order XX ONE (03:50)
[2024-11-24 06:17] LABS: BASOPHILS ABSOLUTE AUTO 0.02 K/mm3 (0.00-0.23); BASOPHILS PERCENT AUTO 0 % (0-2); EOSINOPHILS PERCENT AUTO 0 % (0-6); Hemoglobin 11.3 g/dL (11.5-16.0); IMMATURE GRAN ABSOLUTE AUTO 0.08 K/mm3 (0.00-0.10); IMMATURE GRAN PERCENT AUTO 1 % (0-1); LYMPHOCYTES ABSOLUTE AUTO 1.01 K/mm3 (0.84-5.20); LYMPHOCYTES PERCENT AUTO 8 % (21-46); MONOCYTES ABSOLUTE AUTO 1.14 K/mm3 (0.16-1.47); MONOCYTES PERCENT AUTO 9 % (4-13); Mean Corpuscular HGB 33.9 pg (26.0-34.0); Mean Corpuscular HGB Conc 32.3 g/dL (31.5-36.5); Mean Corpuscular Volume 105 fL (80-100); Mean Platelet Volume 9.9 fL (9.1-12.4); NEUTROPHILS ABSOLUTE AUTO 9.85 K/mm3 (1.96-9.15); NEUTROPHILS PERCENT AUTO 81 % (41-73); NRBC ABSOLUTE 0.03 K/mm3 (0.00-0.02); NRBC Auto 0.2 /100 WBC (0.0-0.2); Platelet Count 149 K/mm3 (150-400); RDW Coefficient Variation 13.6 % (11.7-14.2); RDW Standard Deviation 51.8 fL (35.1-46.3); Red Blood Cell Count 3.33 M/mm3 (3.80-5.20)
[2024-11-24 06:40] LABS: Albumin, Blood 2.3 g/dL (3.4-5.0); Albumin/Globulin Ratio 0.6 (0.8-1.8); Bilirubin, Total 0.4 mg/dL (0.1-1.0); Bun/Creatinine Ratio 28.4 (12.0-20.0); Calcium, Blood 8.5 mg/dL (8.5-10.1); Creatinine, Blood 1.76 mg/dL (0.40-1.00); Globulin, Blood 3.8 g/dL (2.2-4.0); Potassium, Blood 4.3 mmol/L (3.5-5.5); Total Protein, Blood 6.1 g/dL (6.4-8.2)
[2024-11-24] MEDS ORDERED: Lidocaine 4% 1 Patch TOP SCH (09:00)
[2024-11-24] MEDS ORDERED: NS 250 ML IV PRN (09:10)
[2024-11-24] MEDS ORDERED: Dose Adjust by Pharmacy XX STA (11:14)
[2024-11-24] MEDS ORDERED: LORazepam 1 MG Tab PO PRN (11:25)
[2024-11-24] MEDS ORDERED: Scopolamine Hydrobromide Patch TOP PRN (11:25)
[2024-11-24] MEDS ORDERED: Morphine Sulfate 10 MG/ML 1MLSYR IV PRN (11:25)
[2024-11-24] MEDS ORDERED: Morphine Sulfate 20 MG/1ML 1 ML Oral Syringe SL PRN (11:25)
[2024-11-24] MEDS ORDERED: Haloperidol Lactate Inj. 5 MG/ML Injection IV PRN (11:25)
[2024-11-24] MEDS ORDERED: Atropine Sulfate 1% Opth Soln 2ML BTL SL PRN (11:30)
[2024-11-24] MEDS ORDERED: LORazepam 2 MG/ML 1ML Injection IV PRN (11:30)
--- NOTE | 2024-11-24 14:55 | NUR ---
PT WILL NOT BE TRANSPORTED HOME, SHE IS ON 15L 02 AND DESATS WITH MINIMAL ACTIVITY. CHANGED MASK TO N/C FOR COMFORT. SHE IS UNABLE TO SWALLOW, IS OBTUNDED. SPENT TIME WITH GRANDDAUGHTER, OFFERED EMOTIONAL SUPPORT. PT WAS MEDICATED APPROPRIATELY, RESTING COMFORTABLY AT THIS TIME. QUILT AND NECK PILLOW OFFERED.
--- NOTE | 2024-11-24 17:12 | NUR ---
SHIFT SUMMARY PATIENT TRANSFERED FROM PCU. ON ARRIVAL PATIENT MOANING AND GRIMACING. MEDICATED PER MAR AND SLIGHTLY REPOSITIONED, APPEARS TO BE RESTING PEACEFULLY SINCE. FAMILY IN AND OUT OF ROOM. REQUESTING TO NOT REPOSITION UNLESS PATIENT WAKES AND APPEARS TO BE IN PAIN. CALL LIGHT IN REACH, NOT ABLE TO MAKE NEEDS KNOWN AT THIS TIME. AGONAL, WET SOUNDING RESPIRATIONS. ON 10 LITERS NC. SLIGHT MODELING TO LOWER EXTREMITIES.
--- NOTE | 2024-11-24 19:29 | NUR ---
Pastoral care visitation conducted. Multiple family were in the room at the patient's bedside. Family were communing and requested prayer and a blessing for the patient which were both provided accordingly. Family were coping adequately and seemed supportive of one another. Pastoral care to remain available prospectively as needed.
--- NOTE | 2024-11-25 16:03 | NUR ---
PT PASSED PEACEFULLY AT 1550 TODAY SURROUNDED BY FAMILY. CONDOLENCES GIVEN. FAMILY REMAINS AT BEDSIDE. BEDSIDE RN CALLED TOD.
--- NOTE | 2024-11-25 16:08 | NUR ---
PATIENT FAMILY TO CHARGE STATION ASKING FOR NURSE @ BEDSIDE STATING THEY BELIEVED PATIENT WAS CLOSE TO . PRIMARY NURSE NOTIFIED; PT APNIC SHORTLY AFTER. TOD 1553. DOES NOT WISH TO DONATE. DONOR LINE NOTIFIED AND PATIENT NON-ELIGIBLE FOR DONATION. JESUS REFERENCE # [id number] YARITZA DON, PALLIATIVE CARE NURSE WILL ASK ABOUT HOME ARRANGEMENTS.
--- NOTE | 2024-11-25 16:35 | NUR ---
PATIENT FOUND TO HAVE NO RESPIRATION, NO PULSES OR AUDIBLE HEART TONES. PUPILS NON-REACTIVE. TONIA WILKINSON [address]IND[address] SHIPLEY NOTIFIED VIA PHONE MESSAGE. FAMILY IN ROOM. [facility] TO BE NOTIFIED FOR PICKUP.
== END 2024-11-25 15:53 | DRG 521 ==
LOC: ER 16:11 → PCU 20:00 → MEDS 11-24 13:46
PROVIDERS: Family Medicine; Internal Medicine; Nurse Practitioner Acute Care; Orthopaedic Surgery Sports Medicine; Student in an Organized Health Care Education/Training Program; ADMIT Student in an Organized Health Care Education/Training Program
PROC: 0T9B70Z Drainage of Bladder with Drainage Device, Via Natural or Artificial Opening (ICD-10-PCS; 2024-11-20)
PROC: 0SRS019 Replacement of Left Hip Joint, Femoral Surface with Metal Synthetic Substitute, Cemented, Open Approach (ICD-10-PCS; principal; 2024-11-22 12:00)
PROC: 3E03329 Introduction of Other Anti-infective into Peripheral Vein, Percutaneous Approach (ICD-10-PCS; 2024-11-23)
DX: S72.012A Unspecified intracapsular fracture of left femur, initial encounter for closed fracture (principal); A41.9 Sepsis, unspecified organism; I26.99 Other pulmonary embolism without acute cor pulmonale; G93.41 Metabolic encephalopathy; J18.9 Pneumonia, unspecified organism; J96.01 Acute respiratory failure with hypoxia; I50.33 Acute on chronic diastolic (congestive) heart failure; R65.20 Severe sepsis without septic shock; N17.9 Acute kidney failure, unspecified; J44.0 Chronic obstructive pulmonary disease with (acute) lower respiratory infection; F03.94 Unspecified dementia, unspecified severity, with anxiety; I13.0 Hypertensive heart and chronic kidney disease with heart failure and stage 1 through stage 4 chronic kidney disease, or unspecified chronic kidney disease; Z51.5 Encounter for palliative care; Z66 Do not resuscitate; I48.91 Unspecified atrial fibrillation; N18.30 Chronic kidney disease, stage 3 unspecified; G62.9 Polyneuropathy, unspecified; R73.9 Hyperglycemia, unspecified; F17.210 Nicotine dependence, cigarettes, uncomplicated; W18.39XA Other fall on same level, initial encounter; Y92.531 Health care provider office as the place of occurrence of the external cause; Z88.5 Allergy status to narcotic agent; Z79.01 Long term (current) use of anticoagulants
CPT/HCPCS: 31720; 36415; 51702; 70450; 71045; 71250; 73502; 74176; 76770; 80048; 80053; 80076; 80162; 81001; 82570; 82947; 83605; 83735; 83880; 84145; 84300; 84540; 85014; 85018; 85025; 85027; 85049; 85379; 85520; 85610; 85730; 87040; 87070; 87077; 87185; 87205; 93005; 93010; 93970; 94640; 94664; 94762; 96361; 96374; 96375; 99285-25; A9270; C1713; C1751; C1776; J0690; J1100; J1160; J1171; J1644; J1815; J1885; J1938; J2060; J2250; J2270; J2371; J2405; J2543; J2704; J3010; J7030; J7120